=== PATIENT | male | born 1950 | race Caucasian/White ===

== ENCOUNTER → 2024-01-14 09:42 | Outpatient (REF) | payer MEDICARE, BC, SELFPAY | LOC: MRI 3T 09:42 | PROVIDERS: ATTENDING PHYSICIAN Otolaryngology | DX: R27.0 Ataxia, unspecified (principal) | CPT/HCPCS: 70553; A9575 ==

== ENCOUNTER → 2024-08-21 14:07 | Outpatient (REF) | payer MEDICARE, BC, SELFPAY | LOC: HWRAD 14:07 | PROVIDERS: ATTENDING PHYSICIAN Student in an Organized Health Care Education/Training Program | DX: M79.661 Pain in right lower leg (principal) | CPT/HCPCS: 93971 ==

== ENCOUNTER → 2024-11-03 08:30 | Outpatient (REF) | payer MEDICARE, BC, SELFPAY | LOC: RAD 08:30 | PROVIDERS: ATTENDING PHYSICIAN Internal Medicine Cardiovascular Disease | DX: R60.0 Localized edema (principal) | CPT/HCPCS: 93970 ==

== ENCOUNTER → 2024-11-22 10:20 | Outpatient (REF) | payer MEDICARE, BC, SELFPAY | LOC: HWRCS 10:20 | PROVIDERS: ATTENDING PHYSICIAN Internal Medicine Cardiovascular Disease; FAMILY PHYSICIAN Internal Medicine | DX: R60.0 Localized edema (principal) | CPT/HCPCS: 93306 ==

== ENCOUNTER → 2024-11-27 08:29 | Outpatient (REF) | payer MEDICARE, BC, SELFPAY | LOC: HWRCS 08:29 | PROVIDERS: ATTENDING PHYSICIAN Internal Medicine Cardiovascular Disease; FAMILY PHYSICIAN Internal Medicine | DX: R60.0 Localized edema (principal); R06.09 Other forms of dyspnea | CPT/HCPCS: 78452; 93017; A9500; J2785 ==

== ENCOUNTER → 2024-12-13 08:55 | Outpatient (REF) | payer MEDICARE, BC, SELFPAY ==
[2024-12-13 10:24] LABS: % Basophils 0.8 % (0-2); % Eosinophils 4.2 % (0-6); % Immature Granulocytes 0.3 % (0-0.5); % Lymphocytes 42.3 % (20.5-51.1); % Monocytes 8.1 % (1.7-9.3); % Neutrophils 44.3 % (42.2-75.2); Absolute Eosinophils 0.2 10^3/uL (0-0.7); Absolute Lymphocytes 1.5 10^3/uL (1.2-3.4); Absolute Monocytes 0.3 10^3/uL (0.1-0.6); Absolute Neutrophils 1.6 10^3/uL (1.4-6.5); Hematocrit 37.6 % (39.0-52.0); Hemoglobin 12.6 g/dL (13.0-18.0); Mean Corp Hgb Conc. 33.5 g/dL (33.0-37.0); Mean Corpuscular Volume 95.4 fL (80.0-94.0); Mean Platelet Volume 10.7 fL (7.4-10.4); Nucleated Red Blood Cells % 0 % (-); Platelet Count 114 10^3/uL (130-400); Red Blood Cell Count 3.94 10^6/uL (4.70-6.10); Red Cell Dist. Width 14.6 % (11.5-14.5); White Blood Cell Count 3.6 10^3/uL (4.8-10.8)
[2024-12-13 10:38] LABS: Erythrocyte Sed Rate 52 mm/hour (0-20)
[2024-12-13 11:10] LABS: NT-proBNP 114 pg/ml
[2024-12-13 11:58] LABS: ALT (SGPT) 17 U/L (0-50); AST (SGOT) 34 U/L (17-59); Albumin 4.1 g/dl (3.5-5.0); Alkaline Phosphatase 120 U/L (38-126); Direct Bilirubin 0.5 mg/dl (0.0-0.4); Total Bilirubin 2.9 mg/dl (0.2-1.3); Total Protein 8.1 g/dl (6.3-8.2)
[2024-12-14 18:59] LABS: ds-DNA Ab, IgG Reflex To Titer 11 IU (0-24)
== END ==
LOC: RAD 08:55
PROVIDERS: ATTENDING PHYSICIAN Internal Medicine Critical Care Medicine
DX: I27.20 Pulmonary hypertension, unspecified (principal); R06.09 Other forms of dyspnea; R60.0 Localized edema
CPT/HCPCS: 36415; 71250; 80076; 83880; 85025; 85652; 86225

== ENCOUNTER → 2024-12-14 13:11 | Outpatient (REF) | payer MEDICARE, BC, SELFPAY | LOC: RAD 13:11 | PROVIDERS: ATTENDING PHYSICIAN Internal Medicine Critical Care Medicine | DX: I27.20 Pulmonary hypertension, unspecified (principal) | CPT/HCPCS: 36415; 71046; 78582; 86235; A9540; A9567 ==

== ENCOUNTER → 2024-12-20 14:20 | Outpatient (REF) | payer MEDICARE, BC, SELFPAY | LOC: DHSLP 14:20 | PROVIDERS: ATTENDING PHYSICIAN Internal Medicine Critical Care Medicine; FAMILY PHYSICIAN Internal Medicine Critical Care Medicine | DX: G47.30 Sleep apnea, unspecified (principal); R06.83 Snoring | CPT/HCPCS: 95800 ==

== ENCOUNTER → 2024-12-21 08:12 | Outpatient (REF) | payer MEDICARE, BC, SELFPAY | LOC: RSP 08:12 | PROVIDERS: ATTENDING PHYSICIAN Internal Medicine Critical Care Medicine | DX: I27.20 Pulmonary hypertension, unspecified (principal) | CPT/HCPCS: 94727; 94729; 88738; 94010 ==